=== PATIENT | female | born 2005 | race African-American/Black ===

== ENCOUNTER 2023-09-18 22:29 | Emergency (ER) | payer OTHER, SELFPAY ==
[2023-09-18 22:34] VITALS: BP 140/90
[2023-09-19] VITALS: BP 113/74
--- NOTE | 2023-09-19 00:09 | ED.GENMED ---
Addendum entered and electronically signed by Jay Bolden DO 09/19/23 01:28:
Prior to discharge patient resting comfortably respiratory rate 12, pulse ox 100% on room air
Original Note:
History of Present Illness
General
Chief Complaint: Chest Problem
Source: patient
Exam Limitations: none
Time Seen by Provider: 09/18/23 23:34
Nursing documentation reviewed up to this point in time: agreed with
History of Present Illness
History of Present Illness:
17-year-old female limited past medical history presents with palpitations, chest pain shortness of breath fevers, sweats, onset a few days ago, worsened this evening after eating an energy drink, eating and drinking okay no vomiting no constipation
negative test at home
Past History
Past History
ED Past Medical History: None
ED Past Surgical History: None
Social History
Tobacco: Non-smoker
Alcohol: None
Drug: None
Personal: Single
Living: with family
Employment: Employed
Review of Systems
Review of Systems
All Other Systems: Not applicable
Constitutional: Reports fever (Subjective warmth), fatigue and chills
EENT: Reports no symptoms
Respiratory: Denies cough
Cardiac: Reports chest pain; Denies syncope
ABD/GI: Reports no symptoms
: Reports no symptoms
Musculoskeletal: Reports no symptoms
Skin: Reports no symptoms
Neurological: Reports weakness
Endocrine: Reports no symptoms
Phy Exam
Physical Exam
Physical Exam:
Physical Exam
General: no apparent distress, not acutely ill
Neck: No jaundice
Heart: s1/s2 regular rate and rhythm, no murmur. equal radial pulses.
Lungs: no acute respiratory distress. clear bilaterally
Neuro: alert and oriented. no focal neurological deficits
Skin: no rash
Psychiatric: well kept. interactive and cooperative
Extremities: no edema. no calf tenderness.
Course
Orders/Labs/Results
Orders:
Orders
09/18/23 22:39
ECG [Electrocardiogram (*1)] Urgent
Reason for Study: Palpitations
Cardiology Consult: Unknown
EKG- Treatment ONCE
09/18/23 23:57
IV Insert/Care/Rem.- Treatment PRN
Complete Blood Count/With Diff Urgent
Comprehensive Metabolic Panel Urgent
Lipase Urgent
Magnesium Urgent
TSH Urgent
Troponin I Urgent
0.9% Sodium Chloride 1000 ml [Nss] 1,000 ml IV BOLUS
Acetaminophen [Tylenol] 650 mg PO NOW STA
CR Chest - 2 Views Urgent
Comment:
Reason For Exam: cp
Abnormal Lab Results
09/19/23
00:18
WBC 4.7 L 10^3/uL
(4.8-10.8)
RBC 3.59 L 10^6/uL
(4.20-5.40)
Hgb 11.7 L g/dL
(12.0-16.0)
Hct 33.3 L %
(37.0-47.0)
MCH 32.6 H pg
(27.0-31.0)
MPV 10.5 H fL
(7.4-10.4)
Immature Gran % 0.6 H %
(0-0.5)
Neutrophils % 31.5 L %
(42.2-75.2)
Lymphocytes % 54.2 H %
(20.5-51.1)
Monocytes % 11.2 H %
(1.7-9.3)
09/19/23 00:18
09/19/23 00:18
Vital Signs
Initial and Last Documented VS:
Initial Vital Signs
Temp Pulse Resp BP Pulse Ox
99.6 F 69 20 140/90 100
09/18/23 22:34 09/18/23 22:34 09/18/23 22:34 09/18/23 22:34 09/18/23 22:34
Last Documented Vital Signs
Temp Pulse Resp BP Pulse Ox
99.6 F 65 21 113/74 100
09/18/23 22:34 09/19/23 00:30 09/19/23 00:30 09/19/23 00:00 09/19/23 00:15
MDM/Problems Addressed
Differential Diagnosis Includes:
Viral syndrome pulmonary infection pericarditis myocarditis doubt PE by history physical
MDM/Problems Addressed:
Chest pain
*Radiology
Radiology exam reviewed: preliminary read by ED provider
*Pulse Oximetry
Patient hypoxic: no
*EKG
Interpreted by ED Provider?: Yes
Interpretation: abnormal
Comparison EKG: no comparison EKG present
Heart Rate: 78
Rate: normal
Rhythm: sinus
Ischemia: non-specific ST changes
*Manager Sign Interpretation
Rate: normal
Interpretation: normal
Heart Rate: 78
Rhythm: sinus
*Critical Care Note
Total Time (30-74mins, 75-104mins- exclusive of procedures): Not Applicable
Update Note
Update Note:
Update labs noted chest x-ray noted patient appears well
ED Attending Note
-
Portions of this chart may have been created with voice recognition software.� Occasional wrong word or��sound alike� substitutions may have occurred due to the inherent limitations of voice recognition software.
Discharge Plan
Departure
Patient Disposition: Home (Routine Discharge)
Date of Disposition: 09/19/23
Time of Disposition: 01:17
Patient with high blood pressure during this ER visit?: No
Condition: Good
Discharge Problem:
Chest pain
Instructions: Chest Pain PCP Follow Up
Prescriptions:
New
ibuprofen 600 mg tablet
600 mg PO Q6H PRN (Reason: fever or pain) Qty: 20 0RF
Referrals:
UNKNOWN - PT DOES,NOT KNOW [Family Provider] -
Activity Restrictions/Additional Instructions:
Drink plenty of fluids, Tylenol or ibuprofen for fever body aches
Interventions
Interventions:
*Risk Screen - Suicide Last Done: 09/18/23 22:34
*General Assessment Last Done: 09/18/23 22:34
*Neglect/Abuse Screening Last Done: 09/18/23 22:34
ED- Fall Risk Assessment Last Done: 09/18/23 22:34
*ED COVID-19 Vaccine History Last Done: 09/18/23 22:34
ED- Cardiac Assessment Last Done: 09/18/23 23:41
ED- Pulmonary Assessment Last Done: 09/18/23 23:41
Discharge Date and Time
Print Language: MAORI
[2023-09-19] MEDS: TYLENOL 650 MG PO (00:16)
[2023-09-19] MEDS: NSS 1000 IV (00:17)
[2023-09-19 00:35] LABS: Hematocrit 33.3 % (37.0-47.0); Hemoglobin 11.7 g/dL (12.0-16.0); Mean Corp Hgb Conc. 35.1 g/dL (33.0-37.0); Mean Corpuscular Hgb 32.6 pg (27.0-31.0); Mean Corpuscular Volume 92.8 fL (81.0-99.0); Mean Platelet Volume 10.5 fL (7.4-10.4); Platelet Count 309 10^3/uL (130-400); Red Blood Cell Count 3.59 10^6/uL (4.20-5.40); White Blood Cell Count 4.7 10^3/uL (4.8-10.8)
[2023-09-19 00:54] LABS: Troponin I < 0.012 ng/ml
[2023-09-19 01:03] LABS: % Basophils 0.4 % (0-2); % Eosinophils 2.1 % (0-6); % Immature Granulocytes 0.6 % (0-0.5); % Lymphocytes 54.2 % (20.5-51.1); % Monocytes 11.2 % (1.7-9.3); % Neutrophils 31.5 % (42.2-75.2); Absolute Eosinophils 0.1 10^3/uL (0-0.7); Absolute Lymphocytes 2.6 10^3/uL (1.2-3.4); Absolute Monocytes 0.5 10^3/uL (0.1-0.6); Absolute Neutrophils 1.5 10^3/uL (1.4-6.5); Nucleated Red Blood Cells % 0 %
[2023-09-19 01:05] LABS: ALT (SGPT) 10 U/L (0-35); AST (SGOT) 25 U/L (14-36); Albumin 4.2 g/dl (3.5-5.0); Alkaline Phosphatase 49 U/L (38-126); Blood Urea Nitrogen 11 mg/dl (7-17); Carbon Dioxide 26 mmol/L (22-30); Chloride 105 mmol/L (98-107); Glucose 89 mg/dl (70-99); Lipase 63 U/L (23-300); Magnesium 1.7 mg/dl (1.6-2.3); Sodium 137 mmol/L (135-145); Total Bilirubin 0.3 mg/dl (0.2-1.3); Total Protein 7.1 g/dl (6.3-8.2); eGFR > 60.00
[2023-09-19 01:12] LABS: TSH 1.13 uIU/ml (0.47-4.68)
[2023-09-19] MEDS: TORADOL 30 MG IV (01:39)
== END 2023-09-19 01:45 | disposition home or self-care (01) ==
LOC: EMR 22:29
PROVIDERS: EMERGENCY PHYSICIAN Emergency Medicine
DX: R07.89 Other chest pain (principal)
CPT/HCPCS: 99285; 96374; 96361; 71046; 80053; 83690; 83735; 84443; 84484; 85025; 93005

== ENCOUNTER 2023-12-23 09:07 | Emergency (ER) | payer OTHER, SELFPAY ==
[2023-12-23] VITALS (7 sets, daily range): BP systolic 101–125; BP diastolic 71–98; BMI 20.4
--- NOTE | 2023-12-23 09:28 | ED.GENMED ---
History of Present Illness
General
Chief Complaint: Breathing Problem
Source: patient
Time Seen by Provider: 12/23/23 09:15
History of Present Illness
History of Present Illness:
18-year-old female presents to the emergency room complaining of pain in the center of her chest. Patient states she has had the discomfort on and off for the past couple weeks but it seems much worse over the past 24 hours or so. She was unable
to sleep through the night due to the discomfort. She denies any recent travel or periods of immobilization. She does not take any prescription medication. She did not take any medication to treat her symptoms. She denies any associated nausea,
vomiting or diaphoresis. Symptoms do not seem to worsen with position. She denies any activity such as significant exercise or weightlifting.
Past History
Past History
ED Past Medical History: None
ED Past Surgical History: None
Social History
Tobacco: Non-smoker
Alcohol: None
Drug: None
Personal: Single
Living: with family
Employment: Employed
Phy Exam
Physical Exam
Physical Exam:
General: Awake, Alert, Oriented X3. No acute distress.
Vitals: unremarkable
Head: Atraumatic
Eyes: Pupils equal, EOMI
Throat: Airway intact, no exudates
Neck: Trachea midline
Lungs: Clear and equal b/l
Heart: Regular rate, no murmurs, no rub
Abd: Soft, Nontender, No pulsatile mass
Neuro: Nonfocal
Skin: Warm, dry. Rash noted right buttock and proximal lateral thigh. Rashes papular to vesicular in nature. Suspect zoster
Extremities: pulses equal b/l, no edema
Course
Orders/Labs/Results
Orders:
Orders
12/23/23 09:14
EKG [Electrocardiogram (*1)] Urgent
Reason for Study: Chest Pain
EKG- Treatment ONCE
12/23/23 09:27
Test Result ONCE
12/23/23 09:28
Ketorolac [Toradol] 15 mg IV NOW STA
12/23/23 09:41
Basic Metabolic Panel Urgent
Complete Blood Count/With Diff Urgent
D-Dimer Urgent
HCG, Serum Qualitative Screen Urgent
Troponin I Urgent
12/23/23 10:57
COVID-19 Antigen Urgent
Source: Nasal Swab
12/23/23 11:34
CR Chest - 2 Views Urgent
Comment:
Reason For Exam: chest pain
12/23/23 13:23
Valacyclovir HCl [Valtrex] 1,000 mg PO NOW STA
Abnormal Lab Results
12/23/23
09:41
WBC 22.7 H 10^3/uL
(4.8-10.8)
RBC 3.56 L 10^6/uL
(4.20-5.40)
Hgb 11.4 L g/dL
(12.0-16.0)
Hct 32.9 L %
(37.0-47.0)
MCH 32.0 H pg
(27.0-31.0)
Abs Immat Gran (auto) 0.1 H 10^3/uL
(0-0.05)
Absolute Neuts (auto) 20.3 H 10^3/uL
(1.4-6.5)
Absolute Lymphs (auto) 1.1 L 10^3/uL
(1.2-3.4)
Absolute Monos (auto) 1.1 H 10^3/uL
(0.1-0.6)
Neutrophils % 89.6 H %
(42.2-75.2)
Lymphocytes % 4.9 L %
(20.5-51.1)
BUN 6 L mg/dl
(7-17)
11/05/24 09:41
12/23/23 09:41
Vital Signs
Initial and Last Documented VS:
Initial Vital Signs
Temp Pulse Resp BP Pulse Ox
98.7 F 89 16 125/87 100
12/23/23 09:11 12/23/23 09:11 12/23/23 09:11 12/23/23 09:11 12/23/23 09:11
Last Documented Vital Signs
Temp Pulse Resp BP Pulse Ox
98.7 F 82 19 117/98 99
12/23/23 09:11 12/23/23 14:01 12/23/23 14:00 12/23/23 14:01 12/23/23 14:01
MDM/Problems Addressed
Differential Diagnosis Includes:
PE, pneumothorax, pneumonia, pleurisy, chest wall pain
MDM/Problems Addressed:
Patient presents with chest pain that existed in the bilateral chest and has been present to some extent for the past 2 weeks but worse over the past 24 hours. D-dimer is normal. Patient not tachycardic and she does not have any clear PE risk
factors. Labs show an elevated white blood cell count of 22.7. D-dimer is normal. test is negative. The remainder of her labs are unremarkable. Chest x-ray does not show any acute abnormalities. Patient informed the nurse that she
was developing a rash on her right leg. Rash appears consistent with zoster. Will start valacyclovir for this. Suspect her chest wall discomfort is related to pleurisy. Certainly she does not have any evidence for PE. Will treat conservatively
and have her follow-up with her primary care provider
*Radiology
Radiology exam reviewed: preliminary read by ED provider (No acute abnormalities noted)
*Pulse Oximetry
Patient hypoxic: no
*EKG
Interpreted by ED Provider?: Yes
Heart Rate: 83
Rate: normal
Rhythm: sinus
Warrior: normal axis
Interval: normal interval
QRS Pattern: normal QRS
Ischemia: no ischemia
*Senior Specialist Interpretation
Rate: normal
Interpretation: normal
Rhythm: sinus
*Critical Care Note
Total Time (30-74mins, 75-104mins- exclusive of procedures): Not Applicable
ED Attending Note
-
Portions of this chart may have been created with voice recognition software.� Occasional wrong word or��sound alike� substitutions may have occurred due to the inherent limitations of voice recognition software.
Discharge Plan
Departure
Patient Disposition: Home (Routine Discharge)
Date of Disposition: 12/23/23
Time of Disposition: 13:25
Patient with high blood pressure during this ER visit?: No
Condition: Good
Discharge Problem:
Chest pain, Pleurisy, Herpes zoster
Instructions: Shingles, Pleurisy
Prescriptions:
New
valacyclovir [Valtrex] 1 gram tablet
1,000 mg PO TID Qty: 21 0RF
ibuprofen 600 mg tablet
600 mg PO QID PRN (Reason: Pain) Qty: 20 0RF
No Action
ibuprofen 600 mg tablet
600 mg PO Q6H PRN (Reason: fever or pain) Qty: 20 0RF
Referrals:
NONE,* [Family Provider] -
Interventions
Interventions:
*Risk Screen - Suicide Last Done: 12/23/23 09:11
*General Assessment Last Done: 12/23/23 09:11
*Neglect/Abuse Screening Last Done: 12/23/23 09:11
ED- Fall Risk Assessment Last Done: 12/23/23 09:50
*ED COVID-19 Vaccine History Last Done: 12/23/23 09:53
*Nursing Disposition Last Done: 12/23/23 14:11
ED- Cardiac Assessment Last Done: 12/23/23 09:53
ED- Pulmonary Assessment Last Done: 12/23/23 09:24
Discharge Date and Time
Print Language: SENEGALESE
[2023-12-23 10:10] LABS: HCG, Serum Qualitative Screen Negative
[2023-12-23 10:13] LABS: Hematocrit 32.9 % (37.0-47.0); Hemoglobin 11.4 g/dL (12.0-16.0); Mean Corp Hgb Conc. 34.7 g/dL (33.0-37.0); Mean Corpuscular Volume 92.4 fL (81.0-99.0); Mean Platelet Volume 9.9 fL (7.4-10.4); Platelet Count 356 10^3/uL (130-400); Red Blood Cell Count 3.56 10^6/uL (4.20-5.40); Red Cell Dist. Width 13.6 % (11.5-14.5); White Blood Cell Count 22.7 10^3/uL (4.8-10.8)
[2023-12-23 10:15] LABS: Blood Urea Nitrogen 6 mg/dl (7-17); Calcium 9.2 mg/dl (8.4-10.2); Carbon Dioxide 24 mmol/L (22-30); Chloride 104 mmol/L (98-107); Estimated Creatinine Clearance 118 ml/min; Glucose 94 mg/dl (70-99); Potassium 3.9 mmol/L (3.5-5.1); Sodium 139 mmol/L (135-145); eGFR > 60.00
[2023-12-23] MEDS: TORADOL 15 MG IV (10:16)
[2023-12-23 10:21] LABS: Troponin I < 0.012 ng/ml
[2023-12-23 11:05] LABS: D-Dimer < 0.27 ug/mlFEU (0.00-0.50)
[2023-12-23 11:17] LABS: % Basophils 0.3 % (0-2); % Immature Granulocytes 0.4 % (0-0.5); % Lymphocytes 4.9 % (20.5-51.1); % Monocytes 4.8 % (1.7-9.3); % Neutrophils 89.6 % (42.2-75.2); Absolute Basophils 0.1 10^3/uL (0-0.2); Absolute Immature Granulocytes 0.1 10^3/uL (0-0.05); Absolute Lymphocytes 1.1 10^3/uL (1.2-3.4); Absolute Monocytes 1.1 10^3/uL (0.1-0.6); Absolute Neutrophils 20.3 10^3/uL (1.4-6.5); Nucleated Red Blood Cells % 0 %
[2023-12-23 11:24] LABS: COVID-19 Antigen Negative (Negative)
[2023-12-23] MEDS: VALTREX 1000 MG PO (13:38)
== END 2023-12-23 14:21 | disposition home or self-care (01) ==
LOC: EMR 09:07
PROVIDERS: EMERGENCY PHYSICIAN Emergency Medicine
DX: B02.9 Zoster without complications (principal); R07.89 Other chest pain; R09.1 Pleurisy; Z11.52 Encounter for screening for COVID-19
CPT/HCPCS: 99285; 96374; 71046; 80048; 84484; 84703; 85025; 85379; 87811; 93005